=== PATIENT | female | born 1965 | race Caucasian/White ===

== ENCOUNTER 2016-12-04 12:38 | Emergency (ER) | payer SELFPAY ==
[~2016-12-04] VITALS: Ht 170.2 cm; Wt 68.0 kg
[2016-12-04 16:15] VITALS: BP 106/71
== END 2016-12-04 16:16 | disposition home or self-care (01) ==
LOC: ER 12:38
DX: Z00.00 Encounter for general adult medical examination without abnormal findings (principal)
CPT/HCPCS: 99283; Z7610